=== PATIENT | male | born 1965 | race Caucasian/White ===

== ENCOUNTER 2016-12-05 11:17 | Inpatient (IN) | payer OTHER ==
--- NOTE | ~2016-12-05 | DS ---
Unit #: [id number] #: [id number] Patient: JEANNINE ROLAND [id number] [place] [address] [id number] I MR#: [id number] NAME: JEANNINE ROLAND. ROOM: P210 Age: 50 Sex: M Admission Date: 12/05/2016 : 1965 Discharge Date: 12/07/2016 Attending Physician: Florencio Tobias M.D. DISCHARGE SUMMARY REASON FOR ADMISSION The patient is a 50-year-old white male, admitted to the [facility] unit for alcohol detox. HOSPITAL COURSE The patient was admitted to the [address] [place] [address] unit and placed on routine detoxification protocol for alcohol. He was notably tremulous and there was concern about the potential for seizure. He was therefore started on Neurontin 400 mg t.i.d. daily. On 12/07/2016, the patient requested discharge from the hospital citing a need to attend a court date in [place]. He was cautioned that his detox was not yet complete and the risks of discharge were discussed with him including the risk of seizures, DTs, and . The patient however persisted in his wish for discharge and it was so ordered. This physician did consider an against medical advice discharge with no medications; however, it was the feeling of this physician. The patient's risk is so high that to do so would be to put the patient at undue risk. Accordingly, the patient will be given a 5-day supply of Neurontin and a 3-day supply of Ativan to mitigate symptoms of withdrawal. FINAL DIAGNOSES Alcohol use disorder. DISPOSITION ON DISCHARGE The patient is discharged on the following medications: Neurontin 400 mg t.i.d. x5 days for alcohol withdrawal; Ativan 2 mg t.i.d. x1 day, then b.i.d. x1 day for alcohol detox. DISCHARGE INSTRUCTIONS No dietary or physical restrictions were placed upon the patient at the time of discharge. FOLLOWUP Followup will take place through the auspices of community mental health resources in the [facility]. PROGNOSIS The patient's prognosis is considered fair. Dictated by... Florencio Tobias M.D. Unit #: [id number] #: [id number] Patient: JEANNINE ROLAND EDWIN/aliyah TD: 12/07/2016 16:37 JOB #: [id number] DISCHARGE SUMMARY Page 1 of 1 X Florencio Tobias MD DISCHARGE SUMMARY
--- NOTE | ~2016-12-05 | PN ---
Unit #: [id number] #: [id number] Patient: JEANNINE ROLAND [id number] [facility] [address] [place] [address] [id number] MR#: [id number] NAME: JEANNINE ROLAND. ROOM: P210 Age: 50 Sex: M Admission Date: 12/05/2016 : 1965 Attending Physician: Florencio Tobias M.D. Admitting Physician: Florencio Tobias M.D. Primary Care Physician: Susanne Doctor Not In System [facility] PROGRESS NOTES DATE 12/06/2016 DISCUSSION The patient remains grossly tremulous and continues to complain of severe symptoms of alcohol withdrawal. He reports that Vistaril is not addressing his symptoms of anxiety. I will discontinue this medication and begin Neurontin which should not only address the patient's symptoms of anxiety but will also should provide some seizure prophylaxis. Dictated by... Florencio Tobias M.D. CB/arun TD: 12/06/2016 15:32 JOB #: [id number] [facility] PROGRESS NOTES Page 1 of 1 X Florencio Tobias MD X PROGRESS NOTE
--- NOTE | ~2016-12-05 | PA ---
Unit #: [id number] #: [id number] Patient: JEANNINE ROLAND [id number] [place] [address] [id number] I MR#: [id number] NAME: JEANNINE ROLAND. ROOM: P214 Age: 50 Sex: M Admission Date: 12/05/2016 : 1965 Date of Assessment: 12/05/2016 Attending Physician: Florencio Tobias M.D. Admitting Physician: Florenico Tobias M.D. Primary Care Physician: Generic Doctor Not In System PSYCHIATRIC ASSESSMENT IDENTIFYING INFORMATION The patient is a 50-year-old white male admitted to the [address] [place] [address] for alcohol detox. CHIEF COMPLAINT None given. INFORMANT(S) Patient, reliability is good. HISTORY OF PRESENT ILLNESS The patient is a 50-year-old white male admitted in transfer from [facility]. He has been taken there by police after he had become so intoxicated at a [employer] that he was unable to ambulate. The patient denied suicidal or homicidal ideation and denies any psychotic symptoms. He reports that he has been drinking 12 to 20 beers on a daily basis. He has been in treatment in the past at "[facility]" in [place] but was there only for a brief time. The patient denies abuse of other psychoactive substances. He denies recent changes in sleep or appetite. He denies suicidal or homicidal ideation or psychotic symptoms. He denies any history of complicated withdrawal seizure, DTs, etc. PAST PSYCHIATRIC HISTORY As above. PAST MEDICAL HISTORY The patient reports a history of an episode in which he fell from ladder while intoxicated and suffered closed head injury which necessitated in a week's stay in an ICU some times last year. MEDICATIONS None. ALLERGIES None reported. FAMILY HISTORY Noncontributory. SOCIAL HISTORY The patient lives alone. 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 He reports substance use as noted previously and is a smoker. Unit #: [id number] #: [id number] Patient: JEANNINE ROLAND MENTAL STATUS EXAMINATION Examination at this time reveals the patient to be a thin white male appearing stated age. She is in significant physical distress and is notably tremulous during interview. He is awake, alert, and oriented in all spheres. His mood is mildly dysphoric, his affect congruent. Speech is generally well-coherent. No gross deficits in memory or cognition noted. Intelligence is judged to be in the average range based on fund of knowledge. The patient is cooperative throughout the interview. He denies current suicidal or homicidal ideation or psychotic features. Judgment and insight appear to be intact. ASSETS AND LIABILITIES The patient's assets: Motivation for change. Liabilities: Lack of support. DIAGNOSTIC IMPRESSION Alcohol use disorder. TREATMENT PLAN The patient remains hospitalized for safety and stabilization. Routine detoxification protocol has been initiated. The patient will participate in appropriate order of milieu activities. ESTIMATED LENGTH OF STAY 5 days. The followup will take place through the auspices of community mental health resources in the [facility]. Dictated by... Florencio Tobias M.D. Clarence TD: 12/05/2016 14:18 JOB #: [id number] PSYCHIATRIC ASSESSMENT Page 1 of 1 X Florencio Tobias MD X PSYCHIATRIC ASSESSMENT
--- NOTE | ~2016-12-05 | CO ---
Unit #: [id number] #: [id number] Patient: JEANNINE ROLAND [id number] [place] [address] [id number] I MR#: [id number] NAME: JEANNINE ROLAND. ROOM: P210 Age: 50 Sex: M Admission Date: 12/05/2016 : 1965 Attending Physician: Florencio Tobias M.D. Primary Care Physician: Generic Doctor Not In System Consultation Date: 12/06/2016 CONSULTATION REPORT SUBJECTIVE "I don't have any cough but I have some sinus congestion and my nose runs sometimes since I've been here and I have a little bit of a headache." OBJECTIVE VITAL SIGNS: Within normal limits. LUNGS: clear to auscultation bilaterally. HEENT: No pain or pressure to frontal or maxillary sinuses. Noted clear sinus discharge. ASSESSMENT Allergic rhinitis. PLAN Zyrtec 10 mg 1 p.o. daily. Dictated by... Ni Valle/arun TD: 12/06/2016 19:48 JOB #: [id number] CONSULTATION REPORT Page 1 of 1 X Vandana Harrison APR X CONSULTATION REPORT
--- NOTE | ~2016-12-05 | HP ---
Unit #: [id number] #: [id number] Patient: JEANNINE ROLAND [id number] [place] [address] [id number] I MR#: [id number] NAME: JEANNINE ROLAND. ROOM: P210 Age: 50 Sex: M Admission Date: 12/05/2016 : 1965 Attending Physician: Florencio Tobias M.D. Admitting Physician: Florencio Tobias M.D. Primary Care Physician: Generic Doctor Not In System HISTORY AND PHYSICAL HISTORY OF PRESENT ILLNESS Jeannine is a 50 year old admitted to [address] [place] [address] because of his abuse of alcohol. He is detoxing. PAST MEDICAL HISTORY 1. Long history of alcohol abuse. 2. History of CHI, 2016. 3. Peripheral neuropathy. 4. Degenerative disc disease. PAST SURGICAL HISTORY Nothing reported. ALLERGIES No known drug allergies. SOCIAL HISTORY He smokes 2 packs per day. Drinks at least a case of beer on a daily basis and denies illicit drug use. FAMILY HISTORY Medically noncontributory. REVIEW OF SYSTEMS CONSTITUTIONAL: No fever or chills. HEENT: Denies any sore throat, ear pain or runny nose. CARDIOVASCULAR: Denies chest pain, irregular heart rhythm or palpitations. CHEST: Denies shortness of breath or cough. No hemoptysis. GASTROINTESTINAL: Denies nausea, vomiting, diarrhea or chronic constipation. ENDOCRINE: Denies history of increased thirst or urination. No recent significant weight loss or gain. GENITOURINARY: Denies dysuria, frequency, or hematuria. SKIN: Denies any rashes. HEMATOLOGIC: Denies history of increased bleeding or bruising. MUSCULOSKELETAL: Denies any hot, swollen joints. No generalized muscle pain. NEUROLOGIC: Denies problems with vision or speech. No frequent, severe headaches. No numbness, tingling or weakness in any extremities. Denies loss of bladder or bowel control. CURRENT MEDICATIONS Detox protocol. Unit #: [id number] #: [id number] Patient: JEANNINE ROLAND PHYSICAL EXAMINATION GENERAL: Alert, well-nourished, in no apparent distress. VITAL SIGNS: Blood pressure 136/76, heart rate 94, respirations 16, temperature 98.6. WEIGHT: 150. HEIGHT: 5 feet 7 inches. SKIN: Warm and dry without rash or lesion. HEENT: Normocephalic. TMs not viewed. Oral and nasal passages clear. Conjunctivae clear. PERRLA. EOMs intact. NECK: Supple without lymphadenopathy or thyromegaly. HEART: Regular rate and rhythm without murmur. LUNGS: Clear. ABDOMEN: Soft, nontender. : Not done. EXTREMITIES: No evidence of cyanosis, clubbing or edema. Moves all without focal deficit. NEUROLOGICAL: Unable to complete extended exam. He is very weak and has a tremor. He is able to stand and take a few steps but is at risk of fall. 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 Cranial nerves II through XII intact. IMPRESSION Psychiatric admission. RECOMMENDATIONS PSYCHIATRIC: Per psychiatrist. MEDICAL: See no contraindications to participate in facility's activities. MEDICAL PROGNOSIS Good. MEDICAL CONDITION Stable. Dictated by... Lucille Bishop P.A.-C. for Natalio Walsh/arun TD: 12/05/2016 21:39 JOB #: [id number] HISTORY AND PHYSICAL Page 1 of 1 X Lucille Bishop X HISTORY AND PHYSICAL
[2016-12-06 13:22] LABS: THYROID STIMULATING HORMONE 0.07 uIU/ml (0.34-5.60)
[2016-12-06 13:28] LABS: FREE THYROXIN (T4) 1.17 ng/dL (0.58-1.64)
== END 2016-12-07 13:45 | disposition home or self-care (01) | DRG 897 ==
LOC: P2S 11:17
PROVIDERS: Specialist
PROC: HZ2ZZZZ Detoxification Services for Substance Abuse Treatment (ICD-10-PCS; principal; 2016-12-05)
DX: F10.239 Alcohol dependence with withdrawal, unspecified (principal); F41.9 Anxiety disorder, unspecified; F17.210 Nicotine dependence, cigarettes, uncomplicated; J30.9 Allergic rhinitis, unspecified
CPT/HCPCS: 84439; 84443; 86592

== ENCOUNTER 2016-12-18 00:31 | Inpatient (IN) | payer OTHER ==
--- NOTE | ~2016-12-18 | HP ---
Unit #: [id number] #: [id number] Patient: JEANINNE ROLAND [id number] [facility] [address] [place] [address] [id number] I MR#: [id number] NAME: JEANNINE ROLAND. ROOM: P206 Age: 50 Sex: M Admission Date: 12/18/2016 : 1965 Attending Physician: Florencio Tobias M.D. Admitting Physician: Florencio Tobias M.D. Primary Care Physician: Generic Doctor Not In System HISTORY AND PHYSICAL Jeannine is a 50 year old admitted to [address] [place] [address] because of his continued abuse of alcohol. Patient was seen and H and P dated 12/05/16 was reviewed. This is current. No changes. Please see H and P dated 12/05/16. Dictated by... Lucille Bishop P.A.-C. for Natalio Walsh/arun TD: 12/18/2016 20:42 JOB #: [id number] HISTORY AND PHYSICAL Page 1 of 1 X Lucille Bishop HISTORY AND PHYSICAL
--- NOTE | ~2016-12-18 | PN ---
Unit #: [id number] #: [id number] Patient: JEANNINE ROLAND [id number] [facility] [address] [place] [address] [id number] MR#: [id number] NAME: JEANNINE ROLAND. ROOM: P206 Age: 50 Sex: M Admission Date: 12/18/2016 : 1965 Attending Physician: Florencio Tobias M.D. Admitting Physician: Florencio Tobias M.D. Primary Care Physician: Generic Doctor Not In System [facility] PROGRESS NOTES DATE 12/19/2016 DISCUSSION The patient continues to exhibit significant symptoms of alcohol withdrawal and continues to complain of severe anxiety. He appears quite tremulous again today. I will increase the frequency of Neurontin to 400 mg q. 4 hours and will add Motrin on p.r.n. basis for knee pain. Dictated by... Florencio Tobias M.D. CB/arun TD: 12/19/2016 18:01 JOB #: [id number] [facility] PROGRESS NOTES Page 1 of 1 X Florencio Tobias MD X PROGRESS NOTE
--- NOTE | ~2016-12-18 | PN ---
Unit #: [id number] #: [id number] Patient: JEANNINE ROLAND [id number] [facility] [address] [place] [address] [id number] I MR#: [id number] NAME: JEANNINE ROLAND. ROOM: P206 Age: 50 Sex: M Admission Date: 12/18/2016 : 1965 Attending Physician: Florencio Tobias M.D. Admitting Physician: Florencio Tobias M.D. Primary Care Physician: Generic Doctor Not In System [facility] PROGRESS NOTES DATE 12/20/2016 DISCUSSION The patient is in brighter spirits today but remains tremulous and continues to complain of severe anxiety. His detox continues, and I have encouraged him to consider remaining in the hospital for at least another 24 to 48 hours. Dictated by... Florencio Tobias M.D. CB/michelle TD: 12/20/2016 14:38 JOB #: [id number] [facility] PROGRESS NOTES Page 1 of 1 X Florencio Tobias MD PROGRESS NOTE
--- NOTE | ~2016-12-18 | PA ---
Unit #: [id number] #: [id number] Patient: JEANNINE ROLAND [id number] [place] [address] [id number] I MR#: [id number] NAME: JEANNINE ROLAND. ROOM: P206 Age: 50 Sex: M Admission Date: 12/18/2016 : 1965 Date of Assessment: 12/18/2016 Attending Physician: Florencio Tobias M.D. Admitting Physician: Florencio Tobias M.D. Primary Care Physician: Generic Doctor Not In System PSYCHIATRIC ASSESSMENT IDENTIFYING INFORMATION The patient is a 50-year-old single white male admitted to the [address] [place] [address] for alcohol detox. CHIEF COMPLAINT None given. INFORMANT(S) Patient, reliability is good. HISTORY OF PRESENT ILLNESS The patient is a 50-year-old white male admitted to the hospital for alcohol detox. He was admitted to this facility recently but had to leave the hospital prior to get to completion of detox secondary to a court date. He returns having been drinking about a fifth of hard liquor on a daily basis. The patient is currently exhibiting significant symptoms of withdrawal including tremulousness. He does report a history of withdrawal seizures. He denies current suicidal or homicidal ideation or recent changes in sleep or appetite. For more complete history of present illness, please refer to previously dictated notes. PAST PSYCHIATRIC HISTORY Reviewed, no changes. PAST MEDICAL HISTORY Reviewed, no changes. MEDICATIONS None. ALLERGIES None. FAMILY HISTORY Reviewed, no changes. SOCIAL HISTORY Reviewed, no changes. MENTAL STATUS EXAMINATION Examination at this time reveals the patient to be a well-developed well-nourished white male appearing stated age. She is quite tremulous and appears to be in significant physical distress related to alcohol Unit #: [id number] #: [id number] Patient: JEANNINE ROLAND withdrawal. His mood is mildly dysphoric, his affect constricted. Speech is generally well coherent. There are no gross deficits in memory or cognition noted. Intelligence is judged to be in the average range based on fund of knowledge. The patient is cooperative throughout the interview. He is currently denying suicidal or homicidal ideation or psychotic features. Judgment and insight appear to be reasonably intact. ASSETS AND LIABILITIES The patient's assets: Motivation for change. Liabilities: Lack of resources. DIAGNOSTIC IMPRESSION Alcohol use disorder. TREATMENT PLAN The patient remains hospitalized for safety and stabilization. No routine detoxification protocol for alcohol has been initiated, and I will add Neurontin for anxiety and seizure prophylaxis. The patient will participate in appropriate order of milieu activities. ESTIMATED LENGTH OF STAY 5 to 7 days. Dictated by... Florencio Tobias M.D. Clarence TD: 12/18/2016 13:51 JOB #: [id number] PSYCHIATRIC ASSESSMENT Page 1 of 1 X Florencio Tobias MD X PSYCHIATRIC ASSESSMENT
--- NOTE | ~2016-12-18 | DS ---
Unit #: [id number] #: [id number] Patient: JEANNINE ROLAND [id number] [place] [address] [id number] I MR#: [id number] NAME: JEANNINE ROLAND. ROOM: P206 Age: 50 Sex: M Admission Date: 12/18/2016 : 1965 Discharge Date: Attending Physician: Florencio Tobias M.D. DISCHARGE SUMMARY REASON FOR ADMISSION The patient is a 50-year-old single white male, admitted to the [address] [place] [address] for alcohol detox. HOSPITAL COURSE The patient was admitted to the [address] [place] [address] unit and placed on routine detoxification protocol for alcohol. His stay in the hospital was a fairly uneventful one, though he did complain of severe anxiety and Neurontin was added at a dose of 600 mg q.4 hours p.r.n. anxiety. The patient's stay in the hospital was an otherwise uneventful one. By 12/21/2016, he was requesting discharge citing a need to attend a court date. Discharge was ordered. FINAL DIAGNOSIS Alcohol use disorder. DISPOSITION ON DISCHARGE The patient is discharged on the following medications, Claritin 10 mg once daily for environmental allergies and Motrin 600 mg q.6 hours p.r.n. pain. DISCHARGE INSTRUCTIONS No dietary or physical restrictions were placed upon the patient at the time of discharge. FOLLOWUP Followup will take place through the auspices of community health resources in the [place], [place] area. PROGNOSIS The patient's prognosis is considered fair. Dictated by... Florencio Tobias M.D. CB/aliyah TD: 12/21/2016 14:00 JOB #: [id number] Unit #: [id number] #: [id number] Patient: JEANNINE ROLAND DISCHARGE SUMMARY Page 1 of 1 X Florencio Tobias MD X DISCHARGE SUMMARY
== END 2016-12-21 14:38 | disposition home or self-care (01) | DRG 897 ==
LOC: P2S 00:31
PROC: HZ2ZZZZ Detoxification Services for Substance Abuse Treatment (ICD-10-PCS; principal; 2016-12-18)
DX: F10.20 Alcohol dependence, uncomplicated (principal); F41.9 Anxiety disorder, unspecified
CPT/HCPCS: 86592